=== PATIENT | male | born 1945 | race Caucasian/White ===

== ENCOUNTER → 2016-07-15 | Outpatient (REF) | payer MEDICARE ==
[~2016-07-15] MED LIST: /CLON1TA PO; ADV250INH INH; ASPI81TA90 PO; CLON0.2T PO; LISI20TA PO; MULTTAB4 PO; PERCOCET PO; RANI1TAB6 PO; combivent INH
[2016-07-15 12:52] LABS: FOLATE > 24.0 NG/ML (>5.4); VITAMIN B12 LEVEL 806 PG/ML (247-911)
== END ==
LOC: M SFHCADAM 10:43
PROVIDERS: ATTEND Family Medicine
DX: D75.89 Other specified diseases of blood and blood-forming organs (principal); Z79.899 Other long term (current) drug therapy
CPT/HCPCS: 82607; 82746; 84443; G0463

== ENCOUNTER → 2016-12-09 | Outpatient (CLI) | payer MEDICARE, MEDICAID ==
--- NOTE | 2016-12-09 11:28 | REP ---
Left shoulder series: Three views. History: Pain in the left shoulder. Findings: There is moderate osteoarthritis of the glenohumeral articulation with joint space narrowing, sclerosis and subcortical cyst formation on both sides of the glenohumeral joint and some spurring. Mild AC joint spurring is seen. No erosive changes seen. Periarticular soft tissues are unremarkable. Impression: Moderate left glenohumeral osteoarthritis. Signed by Ziggy Smith MD 12/09/2016 11:52 A
== END ==
LOC: M ADAMS 10:44
PROVIDERS: ATTEND Family Medicine
DX: M19.012 Primary osteoarthritis, left shoulder (principal)

== ENCOUNTER → 2016-12-23 | Outpatient (CLI) | payer MEDICARE, MEDICAID ==
--- NOTE | 2016-12-23 15:20 | REP ---
Clinical: Pain. Technique: AP, lateral, bilateral oblique views of the left wrist. Findings: Early advanced arthritic degenerative changes are appreciated including cortical irregularities, subchondral heterogeneity, joint space narrowing primarily involving the 1-3rd carpometacarpal joints as well as increase sclerosis and decreased joint space at the radiocarpal joint line. No acute fracture dislocation. Impression: Early advanced arthritic degenerative changes Signed by Onofre Perez MD 12/23/2016 03:12 P
== END ==
LOC: M ADAMS 14:59
PROVIDERS: ATTEND Family Medicine
DX: M19.032 Primary osteoarthritis, left wrist (principal)
CPT/HCPCS: 73110; G0463

== ENCOUNTER → 2016-12-29 | Outpatient (REF) | payer MEDICARE | LOC: M SFHCPLAZ 09:55 | PROVIDERS: ATTEND Family Medicine | DX: M25.532 Pain in left wrist (principal); K70.31 Alcoholic cirrhosis of liver with ascites; E78.4 Other hyperlipidemia ==

== ENCOUNTER → 2017-02-02 | Outpatient (REF) | payer MEDICARE ==
[2017-02-02 14:02] LABS: BASO # 0.1 10^3/uL (0.0-0.2); BASO % 0.9 % (0.0-1.0); EOS # 0.6 10^3/uL (0.0-0.50); EOS % 6.7 % (0.0-3.0); IMMATURE GRANULOCYTE % 0.8 % (0-0); LYMPH # 2.3 10^3/uL (1.5-4.5); LYMPH % 26.2 % (24.0-44.0); MEAN CORPUSCULAR HEMOGLOBIN 34.8 pg (27.0-33.0); MEAN CORPUSCULAR HGB CONC 33.8 g/dl (32.0-36.5); MONO # 0.9 10^3/uL (0.0-0.8); MONO % 10.3 % (0.0-5.0); NEUTROPHILS # 4.8 10^3/uL (1.8-7.7); NEUTROPHILS % 55.1 % (36.0-66.0); PLATELET COUNT, AUTOMATED 174 10^3/uL (150-450); WHITE BLOOD COUNT 8.7 10^3/uL (4.0-10.0)
[2017-02-02 14:18] LABS: ALBUMIN/GLOBULIN RATIO 0.81 (1.00-1.93); ALKALINE PHOSPHATASE 75 U/L (45-117); ALT/SGPT 29 U/L (12-78); ANION GAP 6 MEQ/L (8-16); AST/SGOT 29 U/L (15-37); BILIRUBIN,TOTAL 0.9 MG/DL (0.2-1.0); BLOOD UREA NITROGEN 10 MG/DL (7-18); CALCIUM LEVEL 9.4 MG/DL (8.8-10.2); CARBON DIOXIDE LEVEL 31 MEQ/L (21-32); CHLORIDE LEVEL 105 MEQ/L (98-107); CHOLESTEROL LEVEL 176 MG/DL (<200); CREATININE FOR GFR 0.89 MG/DL (0.70-1.30); FERRITIN 891 NG/ML (26-388); GLOMERULAR FILTRATION RATE > 60.0 (>42); GLUCOSE, FASTING 89 MG/DL (83-110); POTASSIUM SERUM 4.1 MEQ/L (3.5-5.1); SODIUM LEVEL 142 MEQ/L (136-145); TOTAL PROTEIN 6.7 GM/DL (6.4-8.2); TRIGLYCERIDES LEVEL 59 MG/DL (<150)
== END ==
LOC: M SFHCADAM 08:00
PROVIDERS: ATTEND Family Medicine
DX: K74.60 Unspecified cirrhosis of liver (principal); Z79.899 Other long term (current) drug therapy

== ENCOUNTER → 2017-06-08 | Outpatient (CLI) | payer MEDICARE, MEDICAID | LOC: M ADAMS 10:52 | DX: R06.02 Shortness of breath (principal) | CPT/HCPCS: 71046 ==

== ENCOUNTER → 2017-10-09 | Outpatient (CLI) | payer MEDICARE, MEDICAID | LOC: M RAD 12:58 | DX: M50.10 Cervical disc disorder with radiculopathy, unspecified cervical region (principal) | CPT/HCPCS: 72141 ==

== ENCOUNTER → 2017-11-28 | Outpatient (REF) | payer MEDICARE ==
[2017-11-28 12:24] LABS: BASO # 0.1 10^3/uL (0.0-0.2); BASO % 1.1 % (0.0-1.0); EOS # 0.4 10^3/uL (0.0-0.50); EOS % 3.2 % (0.0-3.0); HEMATOCRIT 46.5 % (42.0-52.0); HEMOGLOBIN 15.9 g/dl (13.5-17.5); IMMATURE GRANULOCYTE % 1.5 % (0-3.0); LYMPH # 3.1 10^3/uL (1.5-4.5); LYMPH % 25.5 % (24.0-44.0); MEAN CORPUSCULAR HEMOGLOBIN 35.9 pg (27.0-33.0); MEAN CORPUSCULAR HGB CONC 34.2 g/dl (32.0-36.5); MONO # 1.2 10^3/uL (0.0-0.8); MONO % 9.7 % (0.0-5.0); NEUTROPHILS # 7.2 10^3/uL (1.8-7.7); PLATELET COUNT, AUTOMATED 151 10^3/uL (150-450); RED BLOOD COUNT 4.43 10^6/uL (4.30-6.10); RED CELL DISTRIBUTION WIDTH 15.1 % (11.5-14.5); WHITE BLOOD COUNT 12.2 10^3/uL (4.0-10.0)
[2017-11-28 12:53] LABS: ALBUMIN 2.9 GM/DL (3.2-5.2); ALBUMIN/GLOBULIN RATIO 0.73 (1.00-1.93); ALKALINE PHOSPHATASE 70 U/L (45-117); ALT/SGPT 35 U/L (12-78); ANION GAP 7 MEQ/L (8-16); AST/SGOT 40 U/L (7-37); BLOOD UREA NITROGEN 11 MG/DL (7-18); CALCIUM LEVEL 9.6 MG/DL (8.8-10.2); CARBON DIOXIDE LEVEL 30 MEQ/L (21-32); CHLORIDE LEVEL 108 MEQ/L (98-107); CREATININE FOR GFR 0.86 MG/DL (0.70-1.30); GLOMERULAR FILTRATION RATE > 60.0 (>42); GLUCOSE, FASTING 94 MG/DL (70-100); POTASSIUM SERUM 4.7 MEQ/L (3.5-5.1); SODIUM LEVEL 145 MEQ/L (136-145); TOTAL PROTEIN 6.9 GM/DL (6.4-8.2)
[2017-11-28 16:34] LABS: ALPHA FETOPROTEIN TUMOR QUANT 7.3 NG/ML (<8.1)
== END ==
LOC: M SFHCADAM 08:12
DX: B37.0 Candidal stomatitis (principal)
CPT/HCPCS: 80053

== ENCOUNTER → 2018-06-18 | Outpatient (REF) | payer MEDICARE | LOC: M SFHCADAM 10:03 | PROVIDERS: ATTEND Family Medicine | DX: K70.30 Alcoholic cirrhosis of liver without ascites (principal) ==

== ENCOUNTER → 2019-02-06 | Outpatient (REF) | payer MEDICARE, MEDICAID ==
[~2019-02-06] MED LIST changes: -/CLON1TA PO; +CLON-412 PO
== END ==
LOC: M SFHCADAM 08:52
PROVIDERS: ATTEND Family Medicine
DX: K70.30 Alcoholic cirrhosis of liver without ascites (principal)
CPT/HCPCS: 82105; G0463

== ENCOUNTER → 2019-03-25 | Outpatient (CLI) | payer MEDICARE, MEDICAID ==
[2019-03-25 12:41] LABS: BASO # 0.2 10^3/uL (0.0-0.2); BASO % 1.4 % (0.0-1.0); EOS # 0.4 10^3/uL (0.0-0.5); EOS % 3.5 % (0.0-3.0); HEMATOCRIT 49.1 % (42.0-52.0); HEMOGLOBIN 16.1 g/dl (13.5-17.5); LYMPH # 2.2 10^3/uL (1.5-5.0); LYMPH % 20.1 % (24.0-44.0); MEAN CORPUSCULAR HEMOGLOBIN 36.3 pg (27.0-33.0); MEAN CORPUSCULAR HGB CONC 32.8 g/dl (32.0-36.5); MEAN CORPUSCULAR VOLUME 110.8 fl (80.0-96.0); MONO # 1.3 10^3/uL (0.0-0.8); MONO % 11.7 % (0.0-5.0); NEUTROPHILS # 6.7 10^3/uL (1.5-8.5); NEUTROPHILS % 61.5 % (36.0-66.0); PLATELET COUNT, AUTOMATED 161 10^3/uL (150-450); RED BLOOD COUNT 4.43 10^6/uL (4.30-6.10); WHITE BLOOD COUNT 10.9 10^3/uL (4.0-10.0)
[2019-03-25 13:16] LABS: ALBUMIN 2.9 GM/DL (3.2-5.2); ALT/SGPT 42 U/L (12-78); BILIRUBIN,TOTAL 0.9 MG/DL (0.2-1.0); BLOOD UREA NITROGEN 13 MG/DL (7-18); CALCIUM LEVEL 9.7 MG/DL (8.8-10.2); CARBON DIOXIDE LEVEL 32 MEQ/L (21-32); CHLORIDE LEVEL 107 MEQ/L (98-107); CREATININE FOR GFR 0.94 MG/DL (0.70-1.30); GLOMERULAR FILTRATION RATE > 60.0 (>42); GLUCOSE, FASTING 101 MG/DL (70-100); POTASSIUM SERUM 3.9 MEQ/L (3.5-5.1); SODIUM LEVEL 143 MEQ/L (136-145); TOTAL PROTEIN 6.7 GM/DL (6.4-8.2)
== END ==
LOC: M LABDRWAD 10:33
PROVIDERS: ATTEND Physician Assistant
DX: R60.0 Localized edema (principal); R05 Cough; S81.802A Unspecified open wound, left lower leg, initial encounter; X58.XXXA Exposure to other specified factors, initial encounter; Y92.89 Other specified places as the place of occurrence of the external cause

== ENCOUNTER → 2019-03-25 | Outpatient (CLI) | payer MEDICARE, MEDICAID ==
--- NOTE | 2019-03-25 11:19 | REP ---
Chest x-ray: Two views. History: Localized edema, cough. Comparison chest x-ray: June 08, 2017. Findings: The lungs are symmetrically aerated and free of infiltrate. Pleural angles are sharp. Heart size is normal. There is some vascular calcification in the aorta. There are degenerative changes in the thoracic spine. Findings are unchanged from June 08, 2017. Impression: No acute disease. Electronically Signed by Ziggy Smith MD 03/25/2019 12:15 P
== END ==
LOC: M ADAMS 10:26
PROVIDERS: ATTEND Physician Assistant
DX: R60.0 Localized edema (principal); R05 Cough; S81.802A Unspecified open wound, left lower leg, initial encounter; X58.XXXA Exposure to other specified factors, initial encounter; Y92.89 Other specified places as the place of occurrence of the external cause

== ENCOUNTER → 2020-04-20 | Outpatient (REF) | payer MEDICARE, MEDICAID | LOC: M SFHCADAM 16:00 | PROVIDERS: ATTEND Family Medicine | DX: R09.89 Other specified symptoms and signs involving the circulatory and respiratory systems (principal); Z11.52 Encounter for screening for COVID-19 | CPT/HCPCS: G0463; U0003 ==

== ENCOUNTER → 2020-09-01 | Outpatient (REF) | payer MEDICARE, MEDICAID ==
[2020-09-01 18:20] LABS: BASO # 0.2 10^3/uL (0.0-0.2); BASO % 1.1 % (0.0-1.0); EOS # 0.5 10^3/uL (0.0-0.5); EOS % 3.7 % (0.0-3.0); HEMOGLOBIN 15.2 g/dl (13.5-17.5); LYMPH # 2.4 10^3/uL (1.5-5.0); LYMPH % 17.4 % (24.0-44.0); MEAN CORPUSCULAR HEMOGLOBIN 36.5 pg (27.0-33.0); MEAN CORPUSCULAR VOLUME 110.3 fl (80.0-96.0); MONO # 1.1 10^3/uL (0.0-0.8); MONO % 8.2 % (2.0-8.0); NEUTROPHILS # 9.1 10^3/uL (1.5-8.5); NEUTROPHILS % 67.8 % (36.0-66.0); PLATELET COUNT, AUTOMATED 184 10^3/uL (150-450); RED BLOOD COUNT 4.17 10^6/uL (4.30-6.10); WHITE BLOOD COUNT 13.5 10^3/uL (4.0-10.0)
== END ==
LOC: M SFHCADAM 13:15
PROVIDERS: ATTEND Family Medicine
DX: D75.89 Other specified diseases of blood and blood-forming organs (principal); K70.30 Alcoholic cirrhosis of liver without ascites; M79.671 Pain in right foot

== ENCOUNTER → 2020-09-28 | Outpatient (CLI) | payer MEDICARE, MEDICAID ==
[~2020-09-28] MED LIST changes: +ISOVUE-370 76% 100ML VIAL As Ordered ONE
[2020-09-28 14:06] LABS: BASO # 0.2 10^3/uL (0.0-0.2); BASO % 1.3 % (0.0-1.0); EOS # 0.5 10^3/uL (0.0-0.5); EOS % 3.7 % (0.0-3.0); HEMOGLOBIN 15.6 g/dl (13.5-17.5); LYMPH # 2.8 10^3/uL (1.5-5.0); LYMPH % 20.6 % (24.0-44.0); MEAN CORPUSCULAR HEMOGLOBIN 36.9 pg (27.0-33.0); MEAN CORPUSCULAR HGB CONC 33.9 g/dl (32.0-36.5); MEAN CORPUSCULAR VOLUME 108.7 fl (80.0-96.0); MONO # 1.7 10^3/uL (0.0-0.8); MONO % 12.8 % (2.0-8.0); NEUTROPHILS % 59.6 % (36.0-66.0); PLATELET COUNT, AUTOMATED 175 10^3/uL (150-450); RED BLOOD COUNT 4.23 10^6/uL (4.30-6.10)
[2020-09-28 14:38] LABS: WHITE BLOOD COUNT 13.5 10^3/uL (4.0-10.0)
[2020-09-28 15:03] LABS: ALBUMIN 2.7 GM/DL (3.2-5.2); BLOOD UREA NITROGEN 17 MG/DL (7-18); C REACTIVE PROTEIN QUANTITATIV 1.14 MG/DL (0.00-0.30); CARBON DIOXIDE LEVEL 30 MEQ/L (21-32); CHLORIDE LEVEL 107 MEQ/L (98-107); CREATININE FOR GFR 0.88 MG/DL (0.70-1.30); GLOMERULAR FILTRATION RATE > 60.0 (>42); GLUCOSE, FASTING 91 MG/DL (70-100); PHOSPHORUS LEVEL 2.9 MG/DL (2.5-4.9); POTASSIUM SERUM 4.1 MEQ/L (3.5-5.1); SODIUM LEVEL 142 MEQ/L (136-145)
--- NOTE | 2020-09-28 15:53 | REP ---
INDICATION: ABSCESS OF LEFT FOOT. COMPARISON: None. TECHNIQUE: Standard helical technique using 2 mm increments and reconstructed both sagittal coronal planes. 100 cc Isovue 370 was administered prior to the exam. FINDINGS: Degenerative changes seen throughout the foot and ankle. This particularly affects the 1st and 2nd metatarsophalangeal joints. The 2nd metatarsophalangeal joint is seen with subchondral sclerosis and tiny subchondral cysts along with heavy marginal osteophyte formation. There is no evidence of an acute fracture, dislocation, or subluxation. There is evidence of soft tissue swelling about the lateral aspect of the foot. There is no evidence of a mass or abscess. IMPRESSION: 1. No evidence of an abscess. 2. Chronic changes as described above. <Electronically signed by Farzad Mckenzie > 09/28/20 [id number]
== END ==
LOC: M RAD 13:08
PROVIDERS: ATTEND Physician Assistant Medical
DX: L02.91 Cutaneous abscess, unspecified (principal)
CPT/HCPCS: 36415; 73701; 80069; 85025; 86140; Q9967

== ENCOUNTER → 2020-09-28 | Outpatient (REF) | payer MEDICARE, MEDICAID ==
[~2020-09-28] MED LIST changes: -ISOVUE-370 76% 100ML VIAL As Ordered ONE
== END ==
LOC: M SFHCADAM 13:43
PROVIDERS: ATTEND Physician Assistant Medical
DX: L02.91 Cutaneous abscess, unspecified (principal)

== ENCOUNTER → 2020-10-15 | Outpatient (REF) | payer MEDICARE, MEDICAID | LOC: M SFHCADAM 18:44 | PROVIDERS: ATTEND Family Medicine | DX: R06.00 Dyspnea, unspecified (principal) | CPT/HCPCS: G0463; U0003 ==

== ENCOUNTER → 2020-11-27 | Outpatient (REF) | payer MEDICARE, MEDICAID ==
[2020-11-27 14:45] LABS: BASO # 0.1 10^3/uL (0.0-0.2); BASO % 0.8 % (0.0-1.0); EOS # 0.4 10^3/uL (0.0-0.5); EOS % 2.7 % (0.0-3.0); HEMATOCRIT 41.4 % (42.0-52.0); HEMOGLOBIN 14.3 g/dl (13.5-17.5); LYMPH # 2.7 10^3/uL (1.5-5.0); LYMPH % 17.7 % (24.0-44.0); MEAN CORPUSCULAR HEMOGLOBIN 38.1 pg (27.0-33.0); MEAN CORPUSCULAR HGB CONC 34.5 g/dl (32.0-36.5); MEAN CORPUSCULAR VOLUME 110.4 fl (80.0-96.0); MONO # 1.6 10^3/uL (0.0-0.8); MONO % 10.4 % (2.0-8.0); NEUTROPHILS # 10.3 10^3/uL (1.5-8.5); PLATELET COUNT, AUTOMATED 165 10^3/uL (150-450); RED BLOOD COUNT 3.75 10^6/uL (4.30-6.10)
[2020-11-27 15:11] LABS: ALBUMIN 2.7 GM/DL (3.2-5.2); ALT/SGPT 43 U/L (12-78); BILIRUBIN,TOTAL 1.2 MG/DL (0.2-1.0); BLOOD UREA NITROGEN 14 MG/DL (7-18); CALCIUM LEVEL 9.3 MG/DL (8.8-10.2); CARBON DIOXIDE LEVEL 30 MEQ/L (21-32); CHLORIDE LEVEL 107 MEQ/L (98-107); CHOLESTEROL LEVEL 229 MG/DL (<200); CHOLESTEROL RISK RATIO 3.693 (<5); CK-MB VALUE MASS 3.3 NG/ML (<3.6); CPK CREATINE PHOSPHOKINASE 100 U/L (39-308); CREATININE FOR GFR 0.86 MG/DL (0.70-1.30); GLOMERULAR FILTRATION RATE > 60.0 (>42); GLUCOSE, FASTING 115 MG/DL (70-100); HDL CHOLESTEROL 62 MG/DL (>40); LDL CHOLESTEROL 147 MG/DL (<100); NON-HDL-C 167 MG/DL; NT-PRO BNP 104 PG/ML (<125); POTASSIUM SERUM 3.9 MEQ/L (3.5-5.1); SODIUM LEVEL 141 MEQ/L (136-145); TOTAL PROTEIN 6.3 GM/DL (6.4-8.2); TRIGLYCERIDES LEVEL 100 MG/DL (<150); TROPONIN I < 0.02 NG/ML (< 0.10)
[2020-11-27 15:25] LABS: WHITE BLOOD COUNT 15.4 10^3/uL (4.0-10.0)
== END ==
LOC: M SFHCADAM 13:20
PROVIDERS: ATTEND Physician Assistant Medical
DX: R06.00 Dyspnea, unspecified (principal); E78.5 Hyperlipidemia, unspecified
CPT/HCPCS: 80053; 80061; 82550; 82553; 83880; 84484; 85025; G0463

== ENCOUNTER → 2021-07-05 | Outpatient (CLI) | payer MEDICARE, MEDICAID | LOC: M ADAMS 10:31 | PROVIDERS: ATTEND Physician Assistant Medical | DX: M50.30 Other cervical disc degeneration, unspecified cervical region (principal); M25.522 Pain in left elbow ==

== ENCOUNTER → 2021-07-05 | Outpatient (REF) | payer MEDICARE, MEDICAID ==
[2021-07-05 12:20] LABS: BASO # 0.1 10^3/uL (0.0-0.2); BASO % 1.2 % (0.0-1.0); EOS # 0.4 10^3/uL (0.0-0.5); EOS % 3.7 % (0.0-3.0); HEMATOCRIT 43.1 % (42.0-52.0); HEMOGLOBIN 14.3 g/dl (13.5-17.5); LYMPH # 2.5 10^3/uL (1.5-5.0); LYMPH % 22.1 % (24.0-44.0); MEAN CORPUSCULAR HEMOGLOBIN 36.8 pg (27.0-33.0); MEAN CORPUSCULAR HGB CONC 33.2 g/dl (32.0-36.5); MEAN CORPUSCULAR VOLUME 110.8 fl (80.0-96.0); MONO # 1.4 10^3/uL (0.0-0.8); MONO % 12.7 % (2.0-8.0); NEUTROPHILS # 6.6 10^3/uL (1.5-8.5); NEUTROPHILS % 58.9 % (36.0-66.0); RED BLOOD COUNT 3.89 10^6/uL (4.30-6.10); WHITE BLOOD COUNT 11.3 10^3/uL (4.0-10.0)
[2021-07-05 13:52] LABS: ALBUMIN 2.5 GM/DL (3.2-5.2); ALT/SGPT 38 U/L (12-78); BLOOD UREA NITROGEN 18 MG/DL (7-18); CALCIUM LEVEL 9.9 MG/DL (8.8-10.2); CARBON DIOXIDE LEVEL 30 MEQ/L (21-32); CHLORIDE LEVEL 107 MEQ/L (98-107); CHOLESTEROL LEVEL 253 MG/DL (<200); CHOLESTEROL RISK RATIO 4.015 (<5); CREATININE FOR GFR 0.85 MG/DL (0.70-1.30); GLOMERULAR FILTRATION RATE > 60.0 (>42); GLUCOSE, FASTING 111 MG/DL (70-100); HDL CHOLESTEROL 63 MG/DL (>40); LDL CHOLESTEROL 174 MG/DL (<100); NON-HDL-C 190 MG/DL; POTASSIUM SERUM 4.3 MEQ/L (3.5-5.1); SODIUM LEVEL 141 MEQ/L (136-145); TOTAL PROTEIN 6.8 GM/DL (6.4-8.2); TRIGLYCERIDES LEVEL 80 MG/DL (<150)
[2021-07-05 14:25] LABS: HEMOGLOBIN A1c 5.1 %
== END ==
LOC: M SFHCADAM 10:14
PROVIDERS: ATTEND Physician Assistant Medical
DX: J44.9 Chronic obstructive pulmonary disease, unspecified (principal); I11.9 Hypertensive heart disease without heart failure; K70.30 Alcoholic cirrhosis of liver without ascites; K21.9 Gastro-esophageal reflux disease without esophagitis; E66.9 Obesity, unspecified; Z79.899 Other long term (current) drug therapy

== ENCOUNTER → 2021-08-03 | Outpatient (REF) | payer MEDICARE, MEDICAID ==
[2021-08-03 17:40] LABS: ALBUMIN 2.7 GM/DL (3.2-5.2); BILIRUBIN,DIRECT 0.4 MG/DL (0.0-0.2); BILIRUBIN,TOTAL 1.2 MG/DL (0.2-1.0); TOTAL PROTEIN 6.9 GM/DL (6.4-8.2)
== END ==
LOC: M SFHCADAM 15:45
PROVIDERS: ATTEND Physician Assistant
DX: Z78.9 Other specified health status (principal)

== ENCOUNTER → 2021-11-04 | Outpatient (REF) | payer MEDICARE, MEDICAID | LOC: M SFHCADAM 12:04 | PROVIDERS: ATTEND Family Medicine | DX: R63.4 Abnormal weight loss (principal); R41.0 Disorientation, unspecified ==

== ENCOUNTER → 2021-11-08 | Outpatient (REF) | payer MEDICARE, MEDICAID | LOC: M SFHCADAM 10:50 | PROVIDERS: ATTEND Family Medicine | DX: K70.30 Alcoholic cirrhosis of liver without ascites (principal); I10 Essential (primary) hypertension ==

== ENCOUNTER → 2021-11-08 | Outpatient (CLI) | payer MEDICARE, MEDICAID ==
[2021-11-08 13:41] LABS: BASO # 0.1 10^3/uL (0.0-0.2); BASO % 1.2 % (0.0-1.0); EOS # 0.5 10^3/uL (0.0-0.5); EOS % 3.9 % (0.0-3.0); HEMATOCRIT 41.1 % (42.0-52.0); LYMPH # 2.7 10^3/uL (1.5-5.0); LYMPH % 23.1 % (24.0-44.0); MEAN CORPUSCULAR HGB CONC 34.1 g/dl (32.0-36.5); MEAN CORPUSCULAR VOLUME 105.7 fl (80.0-96.0); MONO % 14.5 % (2.0-8.0); NEUTROPHILS # 6.3 10^3/uL (1.5-8.5); NEUTROPHILS % 54.2 % (36.0-66.0); PLATELET COUNT, AUTOMATED 231 10^3/uL (150-450); RED BLOOD COUNT 3.89 10^6/uL (4.30-6.10); WHITE BLOOD COUNT 11.6 10^3/uL (4.0-10.0)
[2021-11-08 14:13] LABS: MONO # 1.7 10^3/uL (0.0-0.8)
[2021-11-08 15:11] LABS: ALBUMIN 2.3 GM/DL (3.2-5.2); ALT/SGPT 54 U/L (12-78); BILIRUBIN,TOTAL 0.9 MG/DL (0.2-1.0); BLOOD UREA NITROGEN 11 MG/DL (7-18); CALCIUM LEVEL 10.4 MG/DL (8.8-10.2); CARBON DIOXIDE LEVEL 29 MEQ/L (21-32); CHLORIDE LEVEL 103 MEQ/L (98-107); CREATININE FOR GFR 0.89 MG/DL (0.70-1.30); FREE T4 1.15 NG/DL (0.76-1.46); GLOMERULAR FILTRATION RATE > 60.0 (>42); GLUCOSE, FASTING 114 MG/DL (70-100); POTASSIUM SERUM 4.4 MEQ/L (3.5-5.1); SODIUM LEVEL 138 MEQ/L (136-145); TOTAL PROTEIN 6.6 GM/DL (6.4-8.2)
[2021-11-08 18:26] LABS: VITAMIN B12 LEVEL > 2000 PG/ML (247-911)
== END ==
LOC: M ADAMS 11:06
PROVIDERS: ATTEND Family Medicine
DX: R63.4 Abnormal weight loss (principal); R41.0 Disorientation, unspecified

== ENCOUNTER → 2021-11-15 | Outpatient (REF) | payer MEDICARE, MEDICAID ==
[~2021-11-15] MED LIST changes: +ADV500INH INH; +ALBU2.5V10 INH; +ALBU8.5H INH; +ASPI-161 PO; +BACITAB PO; +C 50TAB PO; +CYAN500T3 PO; +FAMO20TA PO; +FISH1000 PO; +LISI10TA22 PO; +MULT-40 PO; +NADO20TA PO; +PATIENT COMMENT; +SIMV40TA20 PO; +SPIR12.9 INH; +TRAV04OPD OU; +VITA100093 PO; +VITAE40CA PO
== END ==
LOC: M SFHCADAM 11:02
PROVIDERS: ATTEND Physician Assistant Medical
DX: R79.89 Other specified abnormal findings of blood chemistry (principal)

== ENCOUNTER → 2021-11-17 | Outpatient (CLI) | payer MEDICARE, MEDICAID | LOC: M ADAMS 14:39 | PROVIDERS: ATTEND Physician Assistant | DX: S42.002A Fracture of unspecified part of left clavicle, initial encounter for closed fracture (principal); M19.012 Primary osteoarthritis, left shoulder; W19.XXXA Unspecified fall, initial encounter; Y92.9 Unspecified place or not applicable; Y93.9 Activity, unspecified; Y99.9 Unspecified external cause status ==

== ENCOUNTER 2021-11-18 01:37 | Inpatient (IN) | payer MEDICARE, MEDICAID ==
[~2021-11-18] VITALS: Ht 170.2 cm; Wt 66.3 kg
[~2021-11-18 01:37] MED LIST changes: -ADV500INH INH; -ALBU2.5V10 INH; -ALBU8.5H INH; -ASPI-161 PO; -BACITAB PO; -C 50TAB PO; -CYAN500T3 PO; -FAMO20TA PO; -FISH1000 PO; -LISI10TA22 PO; -MULT-40 PO; -NADO20TA PO; -PATIENT COMMENT; -SIMV40TA20 PO; -SPIR12.9 INH; -TRAV04OPD OU; -VITA100093 PO; -VITAE40CA PO
[2021-11-18 02:21] LABS: BASO # 0.1 10^3/uL (0.0-0.2); BASO % 0.8 % (0.0-1.0); EOS # 0.5 10^3/uL (0.0-0.5); EOS % 3.1 % (0.0-3.0); LYMPH # 3.5 10^3/uL (1.5-5.0); LYMPH % 23.4 % (24.0-44.0); MEAN CORPUSCULAR HEMOGLOBIN 36.2 pg (27.0-33.0); MEAN CORPUSCULAR VOLUME 103.4 fl (80.0-96.0); MONO % 11.9 % (2.0-8.0); NEUTROPHILS % 59.6 % (36.0-66.0); PLATELET COUNT, AUTOMATED 238 10^3/uL (150-450); RED BLOOD COUNT 3.87 10^6/uL (4.30-6.10); WHITE BLOOD COUNT 15.1 10^3/uL (4.0-10.0)
[2021-11-18 02:27] LABS: MONO # 1.8 10^3/uL (0.0-0.8)
[2021-11-18 02:43] LABS: INR 1.39; PROTHROMBIN TIME 17.5 SECONDS (12.7-14.5)
[2021-11-18 02:44] LABS: PARTIAL THROMBOPLASTIN TIME 38.1 SECONDS (25.9-37.0)
[2021-11-18 02:45] LABS: CK-MB VALUE MASS 1.9 NG/ML (<3.6); MB/CK RELATIVE INDEX 0.69 (< OR =4)
[2021-11-18 02:51] LABS: ALBUMIN 2.4 GM/DL (3.2-5.2); ALT/SGPT 67 U/L (12-78); BILIRUBIN,DIRECT 0.5 MG/DL (0.0-0.2); BILIRUBIN,TOTAL 1.5 MG/DL (0.2-1.0); BLOOD UREA NITROGEN 18 MG/DL (7-18); CALCIUM LEVEL 12.9 MG/DL (8.8-10.2); CARBON DIOXIDE LEVEL 30 MEQ/L (21-32); CHLORIDE LEVEL 96 MEQ/L (98-107); CREATININE FOR GFR 1.13 MG/DL (0.70-1.30); ETHYL ALCOHOL (ETHANOL) < 0.003 % (0.000-0.010); GLOMERULAR FILTRATION RATE > 60.0 (>42); GLUCOSE, FASTING 114 MG/DL (70-100); MAGNESIUM LEVEL 1.4 MG/DL (1.8-2.4); POTASSIUM SERUM 3.8 MEQ/L (3.5-5.1); SODIUM LEVEL 132 MEQ/L (136-145)
[2021-11-18 04:27] LABS: RSV AMPLIFICATION NEGATIVE (NEGATIVE)
[2021-11-18 04:29] LABS: CK-MB VALUE MASS 2.1 NG/ML (<3.6); MB/CK RELATIVE INDEX 1.15 (< OR =4)
[2021-11-18] MEDS ORDERED: ONDANSETRON 4MG 2ML VIAL IV ONE (06:05)
[2021-11-18] MEDS ORDERED: LACTULOSE 20 GM/30 ML SYRUP UD PO ONE (06:20)
[2021-11-18] MEDS: MORPHINE 4 MG/ML 1ML VIAL/SYRINGE IV PRN ×2 (06:33→19:30)
[2021-11-18] MEDS ORDERED: LISI10TA22 PO (06:44)
[2021-11-18] MEDS ORDERED: ALBU2.5V10 INH (06:44)
[2021-11-18] MEDS ORDERED: TRAV04OPD OU (06:44)
[2021-11-18] MEDS ORDERED: NADO20TA PO (06:44)
[2021-11-18] MEDS ORDERED: VITAE40CA PO (06:44)
[2021-11-18] MEDS ORDERED: FISH1000 PO (06:44)
[2021-11-18] MEDS ORDERED: SPIR12.9 INH (06:44)
[2021-11-18] MEDS ORDERED: ADV500INH INH (06:44)
[2021-11-18] MEDS ORDERED: VITA100093 PO (06:44)
[2021-11-18] MEDS ORDERED: FAMO20TA PO (06:44)
[2021-11-18] MEDS ORDERED: C 50TAB PO (06:44)
[2021-11-18] MEDS ORDERED: MULT-40 PO (06:44)
[2021-11-18] MEDS ORDERED: ALBU8.5H INH (06:44)
[2021-11-18] MEDS ORDERED: SIMV40TA20 PO (06:44)
[2021-11-18] MEDS ORDERED: CYAN500T3 PO (06:44)
[2021-11-18] MEDS ORDERED: PATIENT COMMENT (06:44)
[2021-11-18] MEDS ORDERED: ASPI-161 PO (06:44)
[2021-11-18] MEDS ORDERED: BACITAB PO (06:44)
[2021-11-18] MEDS ORDERED: HOME MED LIST COMPLETE! XX SCH (06:45)
[2021-11-18] MEDS ORDERED: ALBUTEROL 90 MCG/ACT 8GM HFA INHALER INH PRN (08:30)
[2021-11-18] MEDS ORDERED: ALBUTEROL SULFATE 2.5 MG/0.5 ML INH NEB SOLN INH PRN (08:30)
[2021-11-18] MEDS: NADOLOL 20MG TABLET PO SCH (09:00)
[2021-11-18] MEDS ORDERED: LACTULOSE 20 GM/30 ML SYRUP UD PO SCH (09:00)
[2021-11-18] MEDS: VITAMIN E 400 INTERNATIONAL UNITS CAP PO SCH (09:00)
[2021-11-18] MEDS: TIOTROPIUM INHALER/CAPSULE (SPIRIVA) INH SCH (09:06)
[2021-11-18] MEDS: ADVAIR HFA 230/21MCG INHALER INH SCH ×2 (09:06→19:25)
[2021-11-18 10:15] VITALS: BP 127/48
[2021-11-18] MEDS: CYANOCOBALAMIN 500 MCG TAB PO SCH (10:51)
[2021-11-18] MEDS: MULTIVITAMINS/MINERALS THERAP 1 TAB PO SCH (10:51)
[2021-11-18] MEDS: ASCORBIC ACID 500 MG TAB PO SCH (10:52)
[2021-11-18] MEDS: ASPIRIN 81MG ENTERIC TABLET PO SCH (10:52)
[2021-11-18] MEDS: VITAMIN D 1,000 INTERNATIONAL UNITS TABLET PO SCH (10:52)
[2021-11-18] MEDS: FAMOTIDINE 20 MG TAB PO SCH (10:52)
[2021-11-18] MEDS: LACTOBACILLUS ACIDOPHILUS CAP (BACID) PO SCH (10:55)
[2021-11-18 10:58] VITALS: BP 127/48
[2021-11-18] MEDS: MAG SULF 1GM/100ML (MAG RUN) 1 GM in IV 1 EA IV SCH ×4 (11:45→15:30)
[2021-11-18 14:00] VITALS: BP 111/50
[2021-11-18] MEDS ORDERED: oxyCODONE 5MG TAB PO PRN (20:15)
[2021-11-18] MEDS: LACTULOSE 20 GM/30 ML SYRUP UD PO SCH (20:47)
[2021-11-18] MEDS: LATANOPROST 0.005% OPHTH SOLN 2.5 ML OU SCH (20:47)
[2021-11-18 21:48] VITALS: BP 109/48
[2021-11-19] MEDS: KETOROLAC 30 MG/ML 1ML VIAL IV PRN ×2 (00:30→07:13)
[2021-11-19 06:00] VITALS: BP 109/47
[2021-11-19 07:17] LABS: HEMATOCRIT 38.6 % (42.0-52.0); HEMOGLOBIN 12.7 g/dl (13.5-17.5); MEAN CORPUSCULAR HEMOGLOBIN 35.3 pg (27.0-33.0); MEAN CORPUSCULAR HGB CONC 32.9 g/dl (32.0-36.5); MEAN CORPUSCULAR VOLUME 107.2 fl (80.0-96.0); PLATELET COUNT, AUTOMATED 205 10^3/uL (150-450); WHITE BLOOD COUNT 11.6 10^3/uL (4.0-10.0)
[2021-11-19] MEDS: TIOTROPIUM INHALER/CAPSULE (SPIRIVA) INH SCH (07:31)
[2021-11-19] MEDS: ADVAIR HFA 230/21MCG INHALER INH SCH ×2 (07:31→20:11)
[2021-11-19 08:01] LABS: CALCIUM LEVEL 12.5 MG/DL (8.8-10.2); CREATININE FOR GFR 1.31 MG/DL (0.70-1.30); GLOMERULAR FILTRATION RATE 56.8 (>42); POTASSIUM SERUM 4.3 MEQ/L (3.5-5.1)
[2021-11-19] MEDS: ASCORBIC ACID 500 MG TAB PO SCH (09:26)
[2021-11-19] MEDS: ASPIRIN 81MG ENTERIC TABLET PO SCH (09:26)
[2021-11-19] MEDS: LACTULOSE 20 GM/30 ML SYRUP UD PO SCH ×3 (09:26→23:02)
[2021-11-19] MEDS: LACTOBACILLUS ACIDOPHILUS CAP (BACID) PO SCH (09:26)
[2021-11-19] MEDS: VITAMIN D 1,000 INTERNATIONAL UNITS TABLET PO SCH (09:26)
[2021-11-19] MEDS: MULTIVITAMINS/MINERALS THERAP 1 TAB PO SCH (09:27)
[2021-11-19] MEDS: VITAMIN E 400 INTERNATIONAL UNITS CAP PO SCH (09:27)
[2021-11-19] MEDS: CYANOCOBALAMIN 500 MCG TAB PO SCH (09:27)
[2021-11-19] MEDS: FAMOTIDINE 20 MG TAB PO SCH (09:27)
[2021-11-19] MEDS: NADOLOL 20MG TABLET PO SCH (09:29)
[2021-11-19 14:00] VITALS: BP 80/53
[2021-11-19] MEDS: rifAXIMin 550 MG TAB (XIFAXAN) PO SCH ×2 (15:06→21:02)
[2021-11-19] MEDS ORDERED: NS 1,000 ML IV ONE ×2 (15:30→16:55)
[2021-11-19 18:00] VITALS: BP 89/46
[2021-11-19 18:36] VITALS: BP 110/44
[2021-11-19 20:56] VITALS: BP 105/47
[2021-11-19] MEDS: LATANOPROST 0.005% OPHTH SOLN 2.5 ML OU SCH (21:02)
[2021-11-19 23:48] VITALS: BP 113/56
[2021-11-20] VITALS (8 sets, daily range): BP systolic 88–142; BP diastolic 47–75
[2021-11-20] MEDS: KETOROLAC 30 MG/ML 1ML VIAL IV PRN (00:17)
[2021-11-20] MEDS ORDERED: SIMETHICONE 80MG CHEW TAB PO PRN (00:40)
[2021-11-20] MEDS: LACTULOSE 20 GM/30 ML SYRUP UD PO SCH (05:00)
[2021-11-20 06:27] LABS: HEMATOCRIT 42.1 % (42.0-52.0); HEMOGLOBIN 14.1 g/dl (13.5-17.5); MEAN CORPUSCULAR HEMOGLOBIN 35.7 pg (27.0-33.0); MEAN CORPUSCULAR HGB CONC 33.5 g/dl (32.0-36.5); MEAN CORPUSCULAR VOLUME 106.6 fl (80.0-96.0); PLATELET COUNT, AUTOMATED 207 10^3/uL (150-450); RED BLOOD COUNT 3.95 10^6/uL (4.30-6.10); WHITE BLOOD COUNT 7.1 10^3/uL (4.0-10.0)
[2021-11-20 07:00] LABS: CALCIUM LEVEL 11.5 MG/DL (8.8-10.2); CREATININE FOR GFR 2.09 MG/DL (0.70-1.30); GLOMERULAR FILTRATION RATE 33.1 (>42); POTASSIUM SERUM 5.1 MEQ/L (3.5-5.1)
[2021-11-20] MEDS: ADVAIR HFA 230/21MCG INHALER INH SCH (07:47)
[2021-11-20] MEDS: TIOTROPIUM INHALER/CAPSULE (SPIRIVA) INH SCH (07:47)
[2021-11-20] MEDS: LACTOBACILLUS ACIDOPHILUS CAP (BACID) PO SCH (09:13)
[2021-11-20] MEDS: ASCORBIC ACID 500 MG TAB PO SCH (09:13)
[2021-11-20] MEDS: VITAMIN D 1,000 INTERNATIONAL UNITS TABLET PO SCH (09:13)
[2021-11-20] MEDS: CYANOCOBALAMIN 500 MCG TAB PO SCH (09:13)
[2021-11-20] MEDS: FAMOTIDINE 20 MG TAB PO SCH (09:13)
[2021-11-20] MEDS: ASPIRIN 81MG ENTERIC TABLET PO SCH (09:13)
[2021-11-20] MEDS: rifAXIMin 550 MG TAB (XIFAXAN) PO SCH (09:13)
[2021-11-20] MEDS: VITAMIN E 400 INTERNATIONAL UNITS CAP PO SCH (09:13)
[2021-11-20] MEDS: MULTIVITAMINS/MINERALS THERAP 1 TAB PO SCH (09:13)
[2021-11-20] MEDS ORDERED: IPRATROPIUM 0.5MG/ALBUTEROL 2.5MG INH SOL UD 3ML (DUONEB) NEB PRN (11:20)
[2021-11-20 11:47] LABS: ABG BASE EXCESS -10.4 (-2.0-2.0); ABG O2 SATURATION 96.5 % (95.0-99.0); ABG PARTIAL PRESSURE CO2 48.9 mmHg (35.0-45.0); ABG PARTIAL PRESSURE O2 96.3 mmHg (75.0-100.0); ABG STANDARD HCO3 16.4 MEQ/L (22.0-26.0); ABG TOTAL CO2 19.5 MEQ/L (23.0-31.0)
[2021-11-20 11:48] LABS: ABG pH (ARTERIAL) 7.183 UNITS (7.350-7.450)
[2021-11-20] MEDS ORDERED: ETOMIDATE INJ 20MG/10ML VIAL As Ordered ONE (12:11)
[2021-11-20] MEDS ORDERED: ROCURONIUM BROMIDE 50 MG/5 ML VIAL As Ordered ONE (12:11)
[2021-11-20] MEDS ORDERED: DEXTROSE 50% 50 ML SYRINGE IV ONE (12:15)
[2021-11-20] MEDS ORDERED: DEXTROSE 50% 50 ML SYRINGE As Ordered ONE (12:16)
[2021-11-20] MEDS ORDERED: ETOMIDATE INJ 20MG/10ML VIAL IV STA (12:27)
[2021-11-20] MEDS ORDERED: ROCURONIUM BROMIDE 50 MG/5 ML VIAL IV SCH (12:30)
[2021-11-20] MEDS ORDERED: ONDANSETRON 4MG 2ML VIAL IV PRN (12:50)
[2021-11-20] MEDS ORDERED: SCOPOLAMINE 1MG TRANSDERMAL PATCH TOP PRN (12:50)
[2021-11-20] MEDS ORDERED: MORPHINE 2 MG/ML 1ML VIAL IV PRN (12:50)
[2021-11-20 12:55] LABS: ALBUMIN 2.1 GM/DL (3.2-5.2); BILIRUBIN,DIRECT 1.3 MG/DL (0.0-0.2); BILIRUBIN,TOTAL 2.2 MG/DL (0.2-1.0); TOTAL PROTEIN 7.2 GM/DL (6.4-8.2)
== END 2021-11-20 14:17 | disposition expired | DRG 562 ==
LOC: M ED 01:37 → EDBD 01:37 → M ED INP 08:23 → ENRESERV 08:56 → M MSPAV 10:15 → M ICU 11-20 12:07
PROVIDERS: ADMIT Internal Medicine; ATTEND Internal Medicine
DX: S42.002A Fracture of unspecified part of left clavicle, initial encounter for closed fracture (principal); J96.01 Acute respiratory failure with hypoxia; K63.1 Perforation of intestine (nontraumatic); J96.02 Acute respiratory failure with hypercapnia; N17.9 Acute kidney failure, unspecified; E87.2 Acidosis; K72.90 Hepatic failure, unspecified without coma; J43.1 Panlobular emphysema; I10 Essential (primary) hypertension; K70.30 Alcoholic cirrhosis of liver without ascites; M48.02 Spinal stenosis, cervical region; K21.9 Gastro-esophageal reflux disease without esophagitis; M19.90 Unspecified osteoarthritis, unspecified site; R29.6 Repeated falls; Z51.5 Encounter for palliative care; Z79.899 Other long term (current) drug therapy; Z79.82 Long term (current) use of aspirin; W18.30XA Fall on same level, unspecified, initial encounter; Y92.009 Unspecified place in unspecified non-institutional (private) residence as the place of occurrence of the external cause